=== PATIENT | male | born 1995 | race Caucasian/White ===

== ENCOUNTER 2024-05-10 08:28 | Emergency (ER) | payer BC, SELFPAY ==
--- NOTE | ~2024-05-10 | XR_ITS ---
EXAMINATION: XR chest 2V DATE: 05/10/2024 08:54 INDICATION: Heart palpitations TECHNIQUE: PA and lateral views of the chest were obtained. COMPARISON: None FINDINGS: The lungs are clear with no focal airspace opacities, pulmonary edema, pleural effusion or pneumothor ax. The cardiomediastinal silhouette is normal. Visualized bones and soft tissues are unremarkable. IMPRESSION: 1. No acute cardiopulmonary disease. Reviewed, dictated and finalized at location A.
[2024-05-10 08:30] VITALS: BP 149/79; PULSE 117; RESP 15; TEMP 36.5; O2SAT 100
--- NOTE | 2024-05-10 08:34 | ECG_ITS ---
Test Date: 2024-05-10 08:32:16 Measurements Intervals Advance Rate: 108 P: 61 [place]: 134 QRS: 94 QRSD: 81 T: 52 QT: 308 QTc: 413 Interpretive Statements SINUS TACHYCARDIA RIGHT AXIS DEVIATION MINIMAL Q WAVES- INFERIOR LEADS BASELINE ARTIFACT- III, AVR, AVL, AVF, V1, V4-V6 ABNORMAL ECG No previous ECG available for comparison Electronically Signed On 05-10-2024 15:16:44 CDT by Jonathan Deutsch D.O.
[2024-05-10 09:07] LABS: Basophils Absolute Auto 0.1 K/mm3 (0.0-0.1); Basophils Percent Auto 0.7 % (0.2-1.2); Eosinophils Absolute Auto 0.5 K/mm3 (0-0.3); Eosinophils Percent Auto 6.6 % (0-4.4); Hematocrit 47.7 % (42.0-52.0); Hemoglobin 16.4 g/dL (14.0-18.0); Immature Granulocyte Absolute 0.02 K/mm3 (0.00-0.031); Immature Granulocyte Percent A 0.2 % (0-0.5); Lymphocytes Absolute Auto 2.85 K/mm3 (0.9-3.2); Mean Corpuscular HGB Conc 34.4 g/dl (32-36); Mean Corpuscular Volume 90.2 fl (80-100); Mean Platelet Volume 10.6 fl (7.4-10.4); Monocytes Absolute Auto 0.8 K/mm3 (0.1-0.6); Monocytes Percent Auto 9.6 % (2.6-8.5); Neutrophils Absolute Auto 3.9 K/mm3 (1.3-6.7); Neutrophils Percent Auto 47.9 % (45.5-73.1); Platelet Count Result 236 k/mm3 (150-375); Red Blood Count 5.29 M/mm3 (4.6-6.20); Red Cell Distribution Width 12.6 % (11.5-14.5); White Blood Count 8.1 K/mm3 (4.5-10.0)
[2024-05-10 09:21] LABS: Alanine Aminotransferase 24 U/L (6-50); Albumin Level 4.8 g/dL (3.5-5.1); Alkaline Phosphatase 71 U/L (38-126); Anion Gap 13 mmol/L (4-12); Aspartate Amino Transferase 33 U/L (17-59); Bilirubin,Total 0.5 mg/dL (0.2-1.3); Blood Urea Nitrogen 13 mg/dL (9-20); Calcium 9.1 mg/dL (8.4-10.2); Carbon Dioxide 27 mmol/L (22-30); Chloride 100 mmol/L (98-107); Estimated CRCL calculation 101 ml/min; Estimated Glomerular Filt Rate > 60; Glucose 114 mg/dL (65-110); Magnesium 2.1 mg/dL (1.6-2.3); Potassium 3.4 mmol/L (3.4-5.0); Sodium 140 mmol/L (137-145)
[2024-05-10 09:22] LABS: INR 1.2; Prothrombin Time 15.5 Seconds (11.1-14.7)
[2024-05-10 09:23] LABS: Partial Thromboplastin Time 31.1 Seconds (22.3-36.8)
[2024-05-10 09:32] LABS: Troponin I < 0.012 ng/mL (0.000-0.034)
[2024-05-10] MEDS: SODIUM CHLORIDE 0.9% IV 1,000 ML 999 ML IV CONT (09:34)
[2024-05-10 10:09] LABS: Magnesium 2.1 mg/dL (1.6-2.3)
--- NOTE | 2024-05-10 10:38 | ED.ARRPALP ---
HPI - Arrhythmia/Palpitations General Chief Complaint: Arrhythmia/Palpitations Stated Complaint: elevated HR Time Seen by Provider: 05/10/24 08:29 History of Present Illness HPI narrative: Patient is a 29-year-old male who presents ER with reports of racing heart. Reports his heart rate was 150 beats per minute. He was feeling anxious with this. He only felt anxiety after the heart started racing. Denies any significant caffeine intake. He works nights at [employer]. Reports 1 month stir energy drink yesterday. No history of arrhythmia. Symptoms resolved when EMS arrived. No chest pain or chest pressure. No syncope. Denies weight loss. No drug use. Related Data Allergies Allergy/AdvReac Type Severity Reaction Status Date / Time No Known Allergies Allergy Unverified 03/19/18 12:12 Review of Systems Review of Systems: All systems reviewed & are unremarkable except as noted in HPI and below Constitutional: Constitutional: Reports no additional constitutional complaints ENT: Reports system reviewed and no additional complaints, except as documented Cardiovascular: Cardiovascular: Denies chest pain, Reports rapid heart rate and Denies radiating jaw, neck or arm pain Respiratory: Respiratory: Reports no additional respiratory complaints Gastrointestinal: Gastrointestinal: Reports no additional gastrointestinal complaints PMFSH Past Medical History Medical History (Updated 05/10/24 @ 12:38 by Dread Hernandez MD) Healthy adult male Surgical History Surgical History (Updated 05/10/24 @ 10:43 by Dread Hernandez MD) No history of previous surgery Exam Narrative: GENERAL: Well-appearing, well-nourished, and in no acute distress. HEAD: Normocephalic, atraumatic. ENT: Mucous membranes moist. CHEST: Clear to auscultation. No respiratory distress. HEART: Regular rate and rhythm. Normal peripheral pulses. ABDOMEN: Soft, nontender, nondistended. EXTREMITIES: Normal range of motion. No edema. SKIN: Warm, dry, no rash. NEURO: Alert and oriented x3. PSYCH: Normal mood and affect. Course Course Emergency Course: Patient resting comfortably. Normal sinus rhythm here. No additional with Xenia. Recommend establishing care with PCP and possibly getting a Holter monitor referral. Vital Signs Vital signs: Vital Signs Temperature 97.7 F 05/10/24 08:30 Pulse Rate 117 H 05/10/24 08:30 Respiratory Rate 05/10/24 08:30 Blood Pressure 149/79 H 05/10/24 08:30 Pulse Oximetry 100 05/10/24 08:30 Oxygen Delivery Room Air 05/10/24 08:30 Temperature 97.7 F 05/10/24 08:30 Pulse Rate 88 05/10/24 11:03 Respiratory Rate 12 05/10/24 11:03 Blood Pressure 124/76 05/10/24 11:03 Pulse Oximetry 100 05/10/24 11:03 Oxygen Delivery Room Air 05/10/24 08:30 MDM - Arrhythmia/Palpitations Lab Data 05/10/24 09:00 05/10/24 09:00 Labs: Lab Results 05/10/24 05/10/24 Range/Units 09:00 09:00 WBC 8.1 (4.5-10.0) K/mm3 RBC 5.29 (4.6-6.20) M/mm3 Hgb 16.4 (14.0-18.0) g/dL Hct 47.7 (42.0-52.0) % MCV 90.2 (80-100) fl MCH 31.0 (26-34) pg MCHC 34.4 (32-36) g/dl RDW 12.6 (11.5-14.5) % Plt Count 236 (150-375) k/mm3 MPV 10.6 H (7.4-10.4) fl Immature Gran % (Auto) 0.2 (0-0.5) % Neut % (Auto) 47.9 (45.5-73.1) % Lymph % (Auto) 35.0 (18.3-44.2) % [place] % (Auto) 9.6 H (2.6-8.5) % Eos % (Auto) 6.6 H (0-4.4) % Baso % (Auto) 0.7 (0.2-1.2) % Lymph # (Auto) 2.85 (0.9-3.2) K/mm3 [place] # (Auto) 0.8 H (0.1-0.6) K/mm3 Eos # (Auto) 0.5 H (0-0.3) K/mm3 Baso # (Auto) 0.1 (0.0-0.1) K/mm3 Abs Immat Gran (auto) 0.02 (0.00-0.031) K/mm3 Absolute Neuts (auto) 3.9 (1.3-6.7) K/mm3 Absolute Nucleated RBC 0.000 (0.0-0.012) K/mm3 Nucleated RBC % 0.0 (0.0-0.2) % PT 15.5 H (11.1-14.7) Seconds INR 1.2 APTT 31.1 (22.3-36.8) Seconds Sodium 140 (137-145) mmol/L Potassium
[2024-05-10 11:03] VITALS: BP 124/76; PULSE 88; RESP 12; O2SAT 100
[2024-05-10 11:25] LABS: Free T4 Free Thyroxine Reflex 1.17 ng/dL (0.78-2.19)
[2024-05-10 12:15] LABS: Total Triiodothyronine (T3) 1.86 NG/ML (0.97-1.69)
[2024-05-10 13:16] VITALS: BP 113/63; PULSE 79; RESP 16; O2SAT 100
== END 2024-05-10 13:17 | disposition home or self-care (01) ==
PROVIDERS: Emergency Provider Emergency Medicine
DX: R00.2 Palpitations (principal); R00.0 Tachycardia, unspecified
CPT/HCPCS: 36415; 71046; 80053; 83735; 84439; 84443; 84480; 84484; 85025; 85610; 85730; 93005; 96360; 99284; J7030

== ENCOUNTER 2024-05-25 15:45 | Outpatient (CLI) | payer BC, SELFPAY ==
[2024-05-25 18:54] LABS: Hematocrit 49.4 % (42.0-52.0); Hemoglobin 16.3 g/dL (14.0-18.0); Mean Corpuscular Hemoglobin 30.1 pg (26-34); Mean Corpuscular Volume 91.1 fl (80-100); Mean Platelet Volume 10.7 fl (7.4-10.4); Platelet Count Result 218 k/mm3 (150-375); Red Blood Count 5.42 M/mm3 (4.6-6.20); Red Cell Distribution Width 12.8 % (11.5-14.5); White Blood Count 6.9 K/mm3 (4.5-10.0)
[2024-05-25 19:04] LABS: Alanine Aminotransferase 22 U/L (6-50); Albumin Level 4.3 g/dL (3.5-5.1); Alkaline Phosphatase 78 U/L (38-126); Anion Gap 8 mmol/L (4-12); Aspartate Amino Transferase 41 U/L (17-59); Bilirubin,Total 0.7 mg/dL (0.2-1.3); Blood Urea Nitrogen 10 mg/dL (9-20); Calcium 9.1 mg/dL (8.4-10.2); Carbon Dioxide 29 mmol/L (22-30); Chloride 103 mmol/L (98-107); Cholesterol 124 mg/dL (0-200); Estimated Glomerular Filt Rate > 60; Glucose 91 mg/dL (65-110); HDL Direct 49 mg/dL; Sodium 140 mmol/L (137-145); Triglycerides 65 mg/dL (<150)
[2024-05-25 19:14] LABS: LDL Cholesterol Direct 57 mg/dL
== END 2024-05-25 15:46 | disposition home or self-care (01) ==
LOC: ANHGOSHLAB 15:46
PROVIDERS: Visit Provider Nurse Practitioner
DX: R00.2 Palpitations (principal); R79.89 Other specified abnormal findings of blood chemistry; Z76.89 Persons encountering health services in other specified circumstances
CPT/HCPCS: 36415; 80053; 80061; 84439; 84443; 85027

== ENCOUNTER 2024-06-10 05:30 | Emergency (ER) | payer BC, SELFPAY ==
[2024-06-10 05:35] VITALS: BP 126/61; PULSE 84; RESP 19; TEMP 36.6; O2SAT 100
[2024-06-10 05:39] VITALS: BP 126/61; PULSE 84; RESP 19; TEMP 36.6; O2SAT 100
--- NOTE | 2024-06-10 05:45 | ED.ABDPAIN ---
HPI - Abdominal Pain General Chief Complaint: Abdominal Pain <Sharif Madrid MD - Last Filed: 06/10/24 23:09> Stated Complaint: white stool, orange urine <Sharif Madrid MD - Last Filed: 06/10/24 23:09> Time Seen by Provider: 06/10/24 05:33 <Sharif Madrid MD - Last Filed: 06/10/24 23:09> History of Present Illness HPI narrative: Patient is a 29-year-old male who presents to the emergency department this morning complaining of mid epigastric and bilateral upper quadrant abdominal. Patient states that yesterday he noticed that 1 of his a bowel movements was a very light colored which was unusual for him. Patient also noticed that his urine yesterday was orange in color. Patient denies any nausea, vomiting or diarrhea and denies any recent URI illness. Patient states that his urine is usually and denies any recent changes in his diet. Patient denies dysuria. Denies any constipation or diarrhea, melena or hematochezia, fevers or chills. No additional symptoms concerns at this time. <Sharif Madrid MD - Last Filed: 06/10/24 23:09> Related Data Home Medications: Home Medications Medication Instructions Recorded Confirmed No Home Medications 05/21/2424 <Sharif Madrid MD - Last Filed: 06/10/24 23:09> Allergies/Adverse Reactions: Allergies Allergy/AdvReac Type Severity Reaction Status Date / Time No Known Allergies Allergy Verified 06/10/24 05:41 <Sharif Madrid MD - Last Filed: 06/10/24 23:09> Review of Systems Review of Systems: All systems are reviewed and are negative unless stated otherwise in the HPI. <Sharif Madrid MD - Last Filed: 06/10/24 23:09> PMFSH Past Medical History Medical History: Medical History Healthy adult male <Sharif Madrid MD - Last Filed: 06/10/24 23:09> Surgical History Surgical History: Surgical History No history of previous surgery <Sharif Madrid MD - Last Filed: 06/10/24 23:09> Family History Family History: Family History Mother Thyroid cancer <Sharif Madrid MD - Last Filed: 06/10/24 23:09> Social History Social History: Social History Smoking status: Never smoker Alcohol intake: former Substance use: never Do You Feel Safe in your Home?: Yes Lack of Transportation: No Lack of Food: Never True Current Housing: I Have Housing Difficulty Paying Gas/Electric Bills: No Difficulty Paying for Meds: No Education: High School Diploma/GED Living arrangements: with family Occupation/Education: occupation Additional occupation/education comments: [employer] Gender identity (if verbalized by the patient): Male <Sharif Madrid MD - Last Filed: 06/10/24 23:09> Exam Narrative: General: Alert, awake, afebrile, in no acute distress. HEENT: PERRL, no rhinorrhea, no post nasal drip, oropharynx clear. Cardiovascular: Regular rate and rhythm, no murmurs, rubs or gallops, no peripheral edema. Respiratory: Clear to auscultation bilaterally, no tachypnea, no wheezing, no rhonchi, no rubs, no respiratory distress. Abdomen: Soft, nontender, nondistended, no rebound, no guarding, no peritoneal signs. Musculoskeletal: No joint swelling or deformity, normal muscle tone. Skin: No rashes or petechia, no signs of infection. Neurological: Alert and oriented to person, place, and time. Follows all commands. No focal deficits, speech is clear and fluent. <Sharif Madrid MD - Last Filed: 06/10/24 23:09> Course Course Emergency Course: Reviewed labs with patient. Given reassurance. Recommend follow-up with PCP and possibly GI if symptoms recur. Return to the ER if jaundiced. <Dread Hernandez MD - Last Filed:
[2024-06-10 05:46] LABS: Basophils Percent Auto 0.5 % (0.2-1.2); Eosinophils Absolute Auto 0.2 K/mm3 (0-0.3); Hematocrit 48.3 % (42.0-52.0); Hemoglobin 16.4 g/dL (14.0-18.0); Immature Granulocyte Absolute 0.03 K/mm3 (0.00-0.031); Immature Granulocyte Percent A 0.4 % (0-0.5); Lymphocytes Absolute Auto 2.19 K/mm3 (0.9-3.2); Lymphocytes Percent Auto 29.1 % (18.3-44.2); Mean Corpuscular Hemoglobin 30.8 pg (26-34); Mean Corpuscular Volume 90.8 fl (80-100); Mean Platelet Volume 9.9 fl (7.4-10.4); Monocytes Absolute Auto 0.6 K/mm3 (0.1-0.6); Monocytes Percent Auto 8.1 % (2.6-8.5); Neutrophils Absolute Auto 4.5 K/mm3 (1.3-6.7); Neutrophils Percent Auto 59.9 % (45.5-73.1); Platelet Count Result 211 k/mm3 (150-375); Red Blood Count 5.32 M/mm3 (4.6-6.20); Red Cell Distribution Width 12.6 % (11.5-14.5); White Blood Count 7.5 K/mm3 (4.5-10.0)
[2024-06-10 06:01] LABS: Alanine Aminotransferase 23 U/L (6-50); Alkaline Phosphatase 62 U/L (38-126); Anion Gap 9 mmol/L (4-12); Aspartate Amino Transferase 31 U/L (17-59); Bilirubin,Total 0.7 mg/dL (0.2-1.3); Blood Urea Nitrogen 16 mg/dL (9-20); Calcium 9.5 mg/dL (8.4-10.2); Carbon Dioxide 31 mmol/L (22-30); Chloride 99 mmol/L (98-107); Estimated CRCL calculation 101 ml/min; Estimated Glomerular Filt Rate > 60; Glucose 101 mg/dL (65-110); Lipase 82 U/L (23-300); Potassium 3.5 mmol/L (3.4-5.0); Sodium 139 mmol/L (137-145)
[2024-06-10 06:39] LABS: Magnesium 2.2 mg/dL (1.6-2.3)
[2024-06-10] MEDS: SODIUM CHLORIDE 0.9% IV 1,000 ML 999 ML IV CONT (06:45)
[2024-06-10 07:27] LABS: Appearance Urine Clear (Clear); Blood Urine Negative (Negative); Color Urine Yellow (Yellow); Glucose Urine UA Negative (Negative); Ketones Urine Negative (Negative); Protein Urine Negative (Negative); Specific Grav Ur 1.021 (1.001-1.035)
[2024-06-10 07:28] LABS: Add Urine Microscopic? NO; Bilirubin Urine Negative (Negative); Leukocyte Esterase Ur Negative LEU/UL (Negative); Nitrate Urine Negative (Negative)
[2024-06-10 08:06] VITALS: BP 107/67; PULSE 60; RESP 18; O2SAT 100
[2024-06-10 08:34] VITALS: BP 112/67; PULSE 60; RESP 18; TEMP 36.6; O2SAT 98
== END 2024-06-10 08:35 | disposition home or self-care (01) ==
PROVIDERS: Emergency Provider Emergency Medicine; PCP Family Medicine
DX: R19.5 Other fecal abnormalities (principal)
CPT/HCPCS: 36415; 80053; 81003; 83690; 83735; 85025; 96360; 96361; 99283; J7030

== ENCOUNTER 2024-06-23 16:03 | Outpatient (CLI) | payer BC, SELFPAY ==
--- NOTE | ~2024-06-23 | US_ITS ---
EXAMINATION: US thyroid DATE: 06/23/2024 16:16 INDICATION: Abnormal thyroid labs. Family history of thyroid cancer. TECHNIQUE: Multiple ultrasound images of the thyroid were obtained. COMPARISON: None. FINDINGS: The right thyroid lobe measures 5.4 x 1.7 x 1.2 cm. The left thyroid lobe measures 4.9 x 1.7 x 1.2 c m. The isthmus measures 0.2 cm There is normal echotexture and echogenicity throughout the thyroid gl and. No discrete nodules identified. Increased vascular flow is present. IMPRESSION: Increased vascular flow. Otherwise normal thyroid ultrasound findings. Reviewed, dictated and finalized at location K.
== END 2024-06-23 16:04 | disposition home or self-care (01) ==
LOC: GOSHIMG 16:04
PROVIDERS: PCP Family Medicine; Visit Provider Nurse Practitioner
DX: R79.89 Other specified abnormal findings of blood chemistry (principal)
CPT/HCPCS: 76536

== ENCOUNTER 2024-07-16 14:44 | Outpatient (CLI) | payer BC, SELFPAY | END 2024-07-16 14:45 | disposition home or self-care (01) | PROVIDERS: PCP Family Medicine; Visit Provider Nurse Practitioner | DX: R00.2 Palpitations (principal) | CPT/HCPCS: 93242 ==